=== PATIENT | male | born 1945 | race Caucasian/White ===

== ENCOUNTER 2021-09-27 02:14 | Emergency (ER) | payer MEDICARE, OTHER ==
[~2021-09-27 02:14] MED LIST: ALTACE10 MG PO; ASPIRIN EC81 MG PO; COLESTID 1GM TAB1 GM PO; COMBIVENT RESPIM4 GM INH; FLAX SEED OIL1000 MG PO; GARLIC1 EAC1 PO; KEFLEX250 MG PO; NORCO 5-325 TA1 EACH PO; NORVASC5 MG PO
[2021-09-27 03:01] LABS: BASOPHIL 0.7 % (0-2); EOSINOPHIL 1.2 % (0-7); HCT 45.1 % (42.0-52.0); LYMPHOCYTE 19.4 % (15-48); MCHC 33.3 g/dL (32.0-36.0); MCV 96.2 fL (78.0-100.0); MONOCYTE 7.8 % (0-12); MPV 9.9 fL (6.0-9.5); NEUTROPHIL 70.4 % (41-80); NRBC 0; PLT 208 K/uL (150-400); RBC 4.69 M/uL (4.70-6.00); RDW 12.8 % (11.5-14.0); WBC 8.8 K/uL (4.0-10.5)
[2021-09-27 03:09] LABS: ALBUMIN 4.1 g/dL (3.4-5.0); BILIRUBIN - TOTAL 0.5 mg/dL (0.2-1.0); BUN/CREAT RATIO (CALC) 16.3 RATIO; CREATININE 0.98 mg/dL (0.67-1.17); GLOBULIN (CALCULATION) 3.9 g/dL; POTASSIUM 4.8 mmol/L (3.5-5.1)
[2021-09-27 03:54] LABS: BILIRUBIN NEGATIVE (NEGATIVE); BLOOD NEGATIVE Ery/uL (NEGATIVE); CLARITY CLEAR (CLEAR); COLOR YELLOW (YELLOW); GLUCOSE (U) NORMAL (NORMAL); LEUKOCYTES NEGATIVE Leu/uL (NEGATIVE); NITRITE NEGATIVE (NEGATIVE); PROTEIN NEGATIVE (NEGATIVE); SPECIFIC GRAVITY 1.015 (1.001-1.030); UROBILINOGEN 0.2 mg/dL (0.2-1.0)
[2021-09-27 04:02] LABS: CORONAVIRUS 2019 SARS-COV-2 NEGATIVE (NEGATIVE); INFLUENZA A NAA NEGATIVE (NEGATIVE)
== END 2021-09-27 04:18 | disposition home or self-care (01) ==
LOC: FER 02:14
PROVIDERS: Emergency Medicine
DX: J06.9 Acute upper respiratory infection, unspecified (principal); I10 Essential (primary) hypertension; Z20.822 Contact with and (suspected) exposure to COVID-19
CPT/HCPCS: 36415; 71045; 80053; 81003; 84145; 84484; 85025; 85379; 93005; U0002